=== PATIENT | female | born 1980 | race Caucasian/White ===

== ENCOUNTER → 2017-03-10 | Outpatient (CLI) | payer OTHER | LOC: BMCIMAGING 14:43 | PROVIDERS: ATTEND Radiology Diagnostic Radiology | DX: Z00.00 Encounter for general adult medical examination without abnormal findings (principal) ==

== ENCOUNTER → 2017-03-22 | Outpatient (CLI) | payer OTHER | LOC: FIMAGING 14:44 | PROVIDERS: ATTEND Radiology Diagnostic Radiology | DX: N94.89 Other specified conditions associated with female genital organs and menstrual cycle (principal); I87.1 Compression of vein ==

== ENCOUNTER 2017-04-06 07:25 | Day surgery (SDC) | payer OTHER ==
[2017-04-06] MEDS ORDERED: FLUMAZENIL 0.5 MG/5 ML MDV IVP PRN (07:41)
[2017-04-06] MEDS ORDERED: MEPERIDINE 25 MG/ML SYR IVP PRN (07:41)
[2017-04-06] MEDS ORDERED: fentaNYL 100 MCG/2 ML INJ IVP PRN (07:41)
[2017-04-06] MEDS ORDERED: NALOXONE HCL 0.4 MG/ML INJ IVP PRN (07:41)
[2017-04-06] MEDS ORDERED: GLUCAGON HCL 1 MG VIAL IVP PRN (07:41)
[2017-04-06] MEDS ORDERED: ALTEPLASE 2 MG VIAL IVP PRN (07:41)
[2017-04-06] MEDS ORDERED: PROTAMINE SULFATE 50 MG/5 ML VIAL IVP PRN (07:41)
[2017-04-06] MEDS ORDERED: MIDAZOLAM 2 MG/2 ML VIAL IVP PRN (07:41)
[2017-04-06] MEDS ORDERED: HEPARIN 10,000 UNIT/10 ML MDV (1,000 UNIT/ML) IVP PRN (07:41)
[2017-04-06] MEDS ORDERED: NS 1,000 ML IV SCH (07:45)
[2017-04-06] MEDS ORDERED: IOPAMIDOL (ISOVUE-300) 100 ML BTL ONE ×2 (08:27→10:45)
--- NOTE | 2017-04-06 08:29 | PDGENHP ---
History & Physical Chief Complaint: PELVIC PAIN, R>L. History of Present Illness: PREVIOUS GONAL VEIN EMBOLIZAION BILATERAL, WITH INERNAL ILIAC VENOGRAPHY AND SCHLEROTHERAPY. POTENTIAL WORK UP FOR M-T SYNDROME , BUT MRI SUGGEST POSITIVE IMPINGEMENT. Pertinent Past, Social, Family History: LOTS OF PELVIC PROCEDURES INCLUDING IUD , FALLOPIAN TUBE REMOVAL, BILATERAL GONADAL VEIN EMBOLIZATION, NERVE BLOCKS. Relevant Physical Exam: NOT IN DISTRESS Cardiorespiratory Assessment: RRR, CTA
[2017-04-06] MEDS ORDERED: SODIUM TETRADECYL SULFATE 3% 2 ML VIAL IV ONE (08:31)
--- NOTE | 2017-04-06 08:33 | PDPROPOC ---
Sedation Plan of Care Sedation Plan of Care: vital signs stable, mental status noted, patient educated of risks, benefits, alternatives, patient can tolerate sedation ASA Classification: ASA 2 Planned drugs: fentanyl, midazolam Mallampati Score: Class 1 Mallampati Reference Image: Patient passed 3-3-2 rule?: Yes
[2017-04-06] MEDS ORDERED: NALOXONE HCL 0.4 MG/ML INJ ONE (08:59)
[2017-04-06] MEDS ORDERED: MIDAZOLAM 2 MG/2 ML VIAL ONE (08:59)
[2017-04-06] MEDS ORDERED: FLUMAZENIL 0.5 MG/5 ML MDV IVP ONE (08:59)
[2017-04-06] MEDS ORDERED: fentaNYL 100 MCG/2 ML INJ ONE ×4 (08:59→12:10)
[2017-04-06] MEDS: LORazepam 2 MG/ML INJ IVP PRN ×3 (09:32→11:13)
[2017-04-06] MEDS ORDERED: ONDANSETRON 4 MG/2 ML VIAL ONE (10:16)
[2017-04-06] MEDS ORDERED: HYDROmorphONE/DILAUDID 2 MG/ML INJ ONE ×2 (10:53→11:08)
[2017-04-06] MEDS ORDERED: ACETAMINOPHEN 325 MG TAB PO PRN (11:29)
[2017-04-06] MEDS ORDERED: ONDANSETRON 4 MG/2 ML VIAL IVP PRN (11:29)
[2017-04-06] MEDS ORDERED: fentaNYL 100 MCG/2 ML INJ IVP ONE (11:35)
[2017-04-06] MEDS ORDERED: CLOPIDOGREL BISULFATE 75 MG TAB PO ONE (11:36)
[2017-04-06] MEDS ORDERED: oxyCODONE IR 5 MG TAB PO PRN (11:36)
--- NOTE | 2017-04-06 11:38 | PDRADPN ---
Radiology Procedure Note Date of Procedure: 04/06/17 Radiologist: Iesha Barth Anesthesia: IV Sedation Pre-op Diagnosis: May Thurner Syndrome Post-op Diagnosis: same Indication: Recurrent pelvic pain Procedure: LT iliac venogram; stent placement Finding(s): classic May-Thurner syndrome. 16mm STent placed. Inf/Abcess present in the surg proc area at time of surgery?: No Complications: none
[2017-04-06 11:46] VITALS: TEMP 98.8
[2017-04-06 13:14] VITALS: PULSE 92
[2017-04-06 13:42] VITALS: RESP 16; O2SAT 96
[2017-04-06 14:43] VITALS: BP 102/71
== END 2017-04-06 14:43 | disposition home or self-care (01) ==
LOC: FIMAGING 07:25
PROVIDERS: ATTEND Radiology Diagnostic Radiology
PROC: 047D3DZ Dilation of Left Common Iliac Artery with Intraluminal Device, Percutaneous Approach (ICD-10-PCS; principal; 2017-04-06 11:35)
DX: I87.1 Compression of vein (principal)
CPT/HCPCS: 37221; 75736; 99152; 99153; C1769; C1894; C1725; C1876; J1170; J1644; J2060; J2250; J2310; J2405; J3010; Q9967

== ENCOUNTER → 2017-04-23 | Outpatient (CLI) | payer OTHER | LOC: FIMAGING 15:47 | PROVIDERS: ATTEND Radiology Diagnostic Radiology | DX: Z09 Encounter for follow-up examination after completed treatment for conditions other than malignant neoplasm (principal); Z95.828 Presence of other vascular implants and grafts ==